=== PATIENT | female | born 1995 | race Caucasian/White ===

== ENCOUNTER 2024-02-22 19:48 | Emergency (ER) | payer OTHER, SELFPAY ==
[2024-02-22 19:50] VITALS: BP 134/95
[2024-02-22 21:00] LABS: COVID-19 Antigen Negative (Negative)
--- NOTE | 2024-02-22 22:07 | ED.GENMED ---
History of Present Illness
General
Chief Complaint: Cough
Source: patient
Exam Limitations: none
Time Seen by Provider: 02/22/24 22:06
Nursing documentation reviewed up to this point in time: agreed with
History of Present Illness
History of Present Illness:
28-year-old female with no past medical history presents emergency department today with concerns of a cough for the past 5 days. Patient reports that she started to develop a cough and a sore throat. She reports that as the days progressed, she
was coughing up thick sputum. Patient reports that she is not sleep through the night because of the amount of coughing. Of note, patient states that she just moved out of the house that had issues with mold. Patient states that she also feels as
though she has bodyaches. She has no fevers or chills. She has no constipation or diarrhea, no abdominal pain, no nausea or vomiting. Patient reports that she uses an albuterol Hailer as needed which has helped with her symptoms. Patient states
that she does not have a history of asthma but will get occasional wheezing with certain illnesses. Patient states that she was in contact with her girlfriend sister who was recently diagnosed with pneumonia. She notes that she will feel short of
breath at times. Patient denies hemoptysis, chest pain, trouble swallowing.
Past History
Past History
ED Past Medical History: Psychiatric (Borderline personality disorder, anxiety, depression)
ED Past Surgical History: Gynecological
Social History
Tobacco: Non-smoker
Alcohol: None
Personal: Single
Living: with family
Employment: Not employed
Family History
Family History: Other (Noncontributory)
Review of Systems
Review of Systems
All Other Systems: ROS reviewed and negative except as documented in HPI and ROS
Phy Exam
Physical Exam
Physical Exam:
General: Patient is well appearing and in no acute distress; non-toxic
Skin: Warm and dry, no rashes or lesions
Head: Normocephalic, atraumatic
Eyes: Sclera non-icteric. EOMs intact. PERRLA.
Mouth: No intraoral lesions
Throat: Mild pharyngeal erythema, uvula midline, no tonsillar hypertrophy or exudates
Neck: No cervical lymphadenopathy.
Cardiac: Patient slightly tachycardic otherwise regular rhythm, no murmurs
Pulm: Normal respiratory effort, scattered rhonchi heard in lower lung bases
Neuro: CN II-XII intact, no focal neurologic deficits.
Psychiatric: Appropriate mood and affect.
Course
Orders/Labs/Results
Orders:
Orders
02/22/24 19:55
COVID-19 Antigen Urgent
Source: Nasal Swab
Influenza A+B Rapid Molecular Urgent
MARIAH Source: Nasal Swab
Specimen Description:
02/22/24 22:16
Ipratropium/Albuterol Sulfate [Duoneb] 3 ml INH R NOW ONE
CR Chest - 2 Views Urgent
Comment:
Reason For Exam: shortness of breath, cough
Vital Signs
Initial and Last Documented VS:
Initial Vital Signs
Temp Pulse Resp BP Pulse Ox
98.0 F 112 16 134/95 99
02/22/24 19:50 02/22/24 19:50 02/22/24 19:50 02/22/24 19:50 02/22/24 19:50
Last Documented Vital Signs
Temp Pulse Resp BP Pulse Ox
98.0 F 101 20 144/4 98
02/22/24 19:50 02/22/24 23:29 02/22/24 23:29 02/22/24 23:29 02/22/24 23:27
MDM/Problems Addressed
Differential Diagnosis Includes:
Differentials include acute bronchitis, pneumonia, viral syndrome, allergic rhinitis
MDM/Problems Addressed:
28-year-old female presents emergency department today with a cough for the past few days. She feels short of breath at times. She has been using albuterol inhaler with minimal relief. On physical exam, she is afebrile, she is not hypoxic, she
has no acute distress. She is scattered rhonchi heard on exam. Will send off for CXR. Did offer duoneb treatment as this has helped patient in the past with similar symptoms, patient declined.
CXR shows no acute cardiopulmonary abnormality, no evidence of pneumonia or pneumothorax. Prednisone has been sent to the pharmacy to help with patient's persistent cough. Return precautions discussed with patient. Patient stable for discharge.
Chronic conditions affecting care:
tobacco use
Acute Exacerbation and/or Progression of Chronic Illness:
n/a
*Pulse Oximetry
Patient hypoxic: no
*Critical Care Note
Total Time (30-74mins, 75-104mins- exclusive of procedures): Not Applicable
Data Reviewed
Review of Other/Old Records Reveals: Records (reviewed previous ER physician documentation from 01/03/2023, patient seen for dizziness)
Source: patient and records
Prescriptions/Medications Considered But Not Given:
considered antibiotic however no clear infiltrate noted on x-ray
Further Testing Considered But Not Given:
n/a
Patient Management
Escalation/DeEscalation of care consider admission/obs:
Case reviewed with my attending, patient stable for discharge
ED Attending Note
-
Portions of this chart may have been created with voice recognition software.� Occasional wrong word or��sound alike� substitutions may have occurred due to the inherent limitations of voice recognition software.
Discharge Plan
Departure
Patient Disposition: Home (Routine Discharge)
Date of Disposition: 02/22/24
Time of Disposition: 23:21
Patient with high blood pressure during this ER visit?: Yes
Condition: Good
Discharge Problem:
Acute bronchitis
Instructions: Acute Bronchitis, Adult (DC), Cough, Adult (DC), BLOOD PRESSURE
Prescriptions:
New
prednisone 20 mg tablet
40 mg PO DAILY 5 Days Qty: 10 0RF
No Action
escitalopram oxalate 10 MG tablet
10 mg PO DAILY
Referrals:
Srini Grajeda MD [Family Provider] -
Activity Restrictions/Additional Instructions:
Please stay well hydrated.
Please return emergency department should you develop chest pain, trouble breathing, acute worsening of your symptoms.
Please follow up with your primary care provider.
Interventions
Interventions:
*Risk Screen - Suicide Last Done: 02/22/24 22:18
*General Assessment Last Done: 02/22/24 22:18
*Neglect/Abuse Screening Last Done: 02/22/24 22:18
*Nursing Disposition Last Done: 02/22/24 23:29
ED- Pulmonary Assessment Last Done: 02/22/24 23:27
Discharge Date and Time
Discharge Date/Time: 02/22/24 23:29
Print Language: DIVEHI
[2024-02-22 23:29] VITALS: BP 144/4
== END 2024-02-22 23:29 | disposition home or self-care (01) ==
LOC: EMR 19:48
PROVIDERS: Emergency Medicine; EMERGENCY PHYSICIAN Emergency Medicine; FAMILY PHYSICIAN Family Medicine
DX: J20.9 Acute bronchitis, unspecified (principal); R03.0 Elevated blood-pressure reading, without diagnosis of hypertension; Z11.52 Encounter for screening for COVID-19
CPT/HCPCS: 99284; 71046; 87502; 87811

== ENCOUNTER 2024-10-04 00:59 | Emergency (ER) | payer OTHER, SELFPAY ==
[2024-10-04 01:12] VITALS: BP 158/108
--- NOTE | 2024-10-04 02:43 | ED.GENMED ---
History of Present Illness
General
Chief Complaint: Dental Problem
Source: patient
Time Seen by Provider: 10/04/24 02:31
History of Present Illness
History of Present Illness:
See MDM
Past History
Past History
ED Past Medical History: Psychiatric (Borderline personality disorder, anxiety, depression)
ED Past Surgical History: Gynecological
Social History
Tobacco: Non-smoker
Alcohol: None
Personal: Single
Living: with family
Employment: Not employed
Family History
Family History: Other (Noncontributory)
Phy Exam
Physical Exam
Physical Exam:
See MDM
Course
Orders/Labs/Results
Orders:
Orders
10/04/24 02:42
Clindamycin HCl [Cleocin] 300 mg PO NOW STA
Ketorolac [Toradol] 30 mg IM NOW STA
Vital Signs
Initial and Last Documented VS:
Initial Vital Signs
Temp Pulse Resp BP Pulse Ox
98.7 F 98 20 158/108 100
10/04/24 01:12 10/04/24 01:12 10/04/24 01:12 10/04/24 01:12 10/04/24 01:12
Last Documented Vital Signs
Temp Pulse Resp BP Pulse Ox
98.5 F 98 20 158/108 100
10/04/24 02:23 10/04/24 01:12 10/04/24 01:12 10/04/24 01:12 10/04/24 01:12
MDM/Problems Addressed
Differential Diagnosis Includes:
HPI and MDM Narrative:
28-year-old female presenting for evaluation of right dental pain. Patient developed pain about a month ago and went to the dentist. She states the dentist tried to place her on oral vancomycin. Patient has had issues with vancomycin in the past
so she never took the medicine. The dentist suggested that she follow-up with her PCP.
Since then, patient has been dealing with worsening pain. Patient believes she needs another antibiotic
Physical exam
General: Well appearing and non-toxic
HEENT: protecting airway. Dental caries noted to right upper molar. No surrounding gingival abscess
Neck: appears supple
CV: No evidence of cyanosis
Resp: No accessory muscle use
Abd: Non-distended
Extremities: No deformities
Neuro: alert
Psych: Normal affect
Skin: Intact
Problems Addressed including Acute and Chronic Conditions affecting care:
1. Dental pain
Acuity: acute
Prognosis: stable
Details: Will give dose of Toradol and start clindamycin. She understands the tooth likely has to be pulled
Differential Diagnosis (but not limited to): Dental abscess, dental caries, fractured tooth
Testing considered: CT maxillofacial but there is no external edema noted
Drug therapy (if applicable): OTC meds, please see d/c instruction regarding Rx drugs
Amount and/or Complexity of Data Reviewed
Clinical info obtained from: Patient
External data reviewed: N/A
Labs I independently reviewed (but not limited to): N/A
Radiology: N/A
Pulse Ox: not hypoxic
EKG independently reviewed: N/A
Bench Examiner: N/A
Critical Care: N/A
Risk of Complication:
Social Determinants of health: Good social support
Discussed with other providers: N/A
Escalation of Care includes Admit/Obs: After being observed in the Emergency Department, pt stable for discharge.
Occasional wrong word or 'sound a like' substitutions may have occurred due to the inherent limitations of voice recognition software. Read the chart carefully and recognize, using context, where substitutions have occurred.
*Critical Care Note
Total Time (30-74mins, 75-104mins- exclusive of procedures): Not Applicable
ED Attending Note
-
Portions of this chart may have been created with voice recognition software.� Occasional wrong word or��sound alike� substitutions may have occurred due to the inherent limitations of voice recognition software.
Discharge Plan
Departure
Patient Disposition: Home (Routine Discharge)
Date of Disposition: 10/04/24
Time of Disposition: 02:50
Patient with high blood pressure during this ER visit?: Yes
Discharge Problem:
Pain, dental
Instructions: Dental Pain (DC)
Prescriptions:
New
clindamycin HCl 300 mg capsule
300 mg PO TID 10 Days Qty: 30 0RF
diclofenac potassium 50 mg tablet
50 mg PO BID Qty: 20 0RF
No Action
escitalopram oxalate 10 MG tablet
10 mg PO DAILY
prednisone 20 mg tablet
40 mg PO DAILY 5 Days Qty: 10 0RF
Referrals:
UNKNOWN - PT DOES,NOT KNOW [Family Provider]
Activity Restrictions/Additional Instructions:
Please return for any worsening symptoms.
You may return at any time if you have further concerns.
Please follow up with your dentist at the first available appointment, preferably this week.
Thank you for choosing [facility].
Interventions
Interventions:
*Risk Screen - Suicide Last Done: 10/04/24 01:12
*General Assessment Last Done: 10/04/24 01:12
*Neglect/Abuse Screening Last Done: 10/04/24 01:12
Discharge Date and Time
Print Language: FAROESE
[2024-10-04 03:03] VITALS: BP 123/80
[2024-10-04] MEDS: TORADOL 30 MG IM (03:07)
[2024-10-04] MEDS: CLEOCIN 300 MG PO (03:07)
== END 2024-10-04 03:17 | disposition home or self-care (01) ==
LOC: EMR 00:59
PROVIDERS: EMERGENCY PHYSICIAN Student in an Organized Health Care Education/Training Program
DX: K08.89 Other specified disorders of teeth and supporting structures (principal); K02.9 Dental caries, unspecified
CPT/HCPCS: 99284